=== PATIENT | male | born 1960 | race Caucasian/White ===

== ENCOUNTER 2021-10-15 14:53 | Emergency (ER) | payer MEDICAID ==
[~2021-10-15] VITALS: Ht 172.7 cm; Wt 160.0 kg
[~2021-10-15 14:53] MED LIST: FLUO20CA19 PO; LISI-275 PO
[2021-10-15] MEDS ORDERED: SODIUM CHLORIDE 0.9% 1,000 ML IV ONE (15:15)
[2021-10-15 16:19] VITALS: BP 149/97
[2021-10-16] MEDS ORDERED: ATEN-60 PO (15:21)
== END 2021-10-15 18:04 | disposition left against medical advice (07) ==
LOC: ER 14:53 → EDBD 14:53 → ER 18:04
DX: F10.129 Alcohol abuse with intoxication, unspecified (principal); I10 Essential (primary) hypertension; J44.9 Chronic obstructive pulmonary disease, unspecified; F17.210 Nicotine dependence, cigarettes, uncomplicated; Z90.49 Acquired absence of other specified parts of digestive tract; Z79.899 Other long term (current) drug therapy; Z88.5 Allergy status to narcotic agent; Z88.8 Allergy status to other drugs, medicaments and biological substances; Y90.9 Presence of alcohol in blood, level not specified
CPT/HCPCS: 93005

== ENCOUNTER 2021-10-15 19:38 | Inpatient (IN) | payer MEDICAID ==
[~2021-10-15] VITALS: Ht 175.3 cm; Wt 68.2 kg
[2021-10-15 21:03] LABS: Partial Thromboplastin Time 26.4 sec (24.6-33.4)
[2021-10-15 21:57] LABS: Basophils # (auto) 0 10 ^3/uL (0-0.2); Basophils % (auto) 0.6 % (0.0-2.0); Eosinophils # (auto) 0 10 ^3/uL (0-0.8); Eosinophils % (auto) 0.2 % (0.0-7.0); Hematocrit 45.2 % (41.0-53.0); Mean Corpuscular Hemoglobin 32.3 pg (28.0-32.0); Mean Corpuscular Hgb Conc. 33.3 g/dL (32.0-36.0); Mean Corpuscular Volume 97.1 fL (80.0-100.0); Monocytes # (auto) 0.7 10 ^3/uL (0-1.3); Monocytes % (auto) 7.8 % (0.0-12.0); Neutrophils # (auto) 4.8 10 ^3/uL (1.6-8.6); Neutrophils % (auto) 56.4 % (37.0-80.0); Red Blood Cells 4.66 10^6/uL (4.5-5.90); Red Cell Distribution Width 15.2 % (11.8-14.3); White Blood Cell 8.5 10^3/uL (4.4-10.8)
[2021-10-15 22:18] LABS: Albumin 4.1 g/dL (3.4-5.0); BUN/Creatinine Ratio 15.8; Calcium 8.3 mg/dL (8.5-10.1); Magnesium 2.2 mg/dL (1.6-2.6); Potassium 4.1 mmol/L (3.5-5.1)
[2021-10-15 22:21] LABS: Bilirubin, Total 0.4 mg/dL (0.2-1.0); Total Protein 7.4 g/dL (6.4-8.2)
[2021-10-16] MEDS ORDERED: NITROGLYCERIN 0.4 MG SL TAB SL PRN (04:30)
[2021-10-16] MEDS ORDERED: ONDANSETRON HCL 4 MG/2 ML VIAL IV PRN (04:30)
[2021-10-16] MEDS ORDERED: ACETAMINOPHEN 325 MG TAB PO PRN (04:30)
[2021-10-16] MEDS ORDERED: TEMAZEPAM 15 MG CAP PO PRN (04:30)
[2021-10-16] MEDS ORDERED: ADENOSINE 61 MG in GIVE UN-DILUTED 0 ML IV STA (08:30)
[2021-10-16] MEDS: PANTOPRAZOLE 40 MG TAB PO SCH (10:00)
[2021-10-16 10:44] VITALS: BP 151/93
[2021-10-16 11:10] LABS: Cholesterol 221 mg/dL (< 200)
[2021-10-16 11:12] LABS: HDL Cholesterol 48 mg/dL (40-59); LDL Cholesterol 137 mg/dL (< 100); Triglycerides 350 mg/dL (< 150)
[2021-10-16] MEDS: LISINOPRIL 5 MG TAB PO SCH (12:40)
[2021-10-16] MEDS: ASPirin 81 mg TAB PO SCH (12:40)
[2021-10-16] MEDS: ENOXAPARIN SOD 40 MG/0.4 ML SYRINGE SC SCH (12:42)
[2021-10-16] MEDS: NICOTINE 21MG/24 HR TOPICAL PATCH TD SCH (12:50)
[2021-10-16] MEDS ORDERED: ATEN-60 PO (15:21)
[2021-10-16 17:00] VITALS: BP 142/84
[2021-10-16] MEDS: MORPHINE SULFATE INJ 2 MG/ml SYRG IV PRN ×2 (17:00→19:59)
[2021-10-16 22:00] VITALS: BP 145/87
[2021-10-16] MEDS ORDERED: Niacin 500mg TAB ER PO SCH (22:00)
[2021-10-17 04:59] VITALS: BP 134/85
[2021-10-17 05:50] LABS: Basophils # (auto) 0 10 ^3/uL (0-0.2); Basophils % (auto) 0.6 % (0.0-2.0); Eosinophils # (auto) 0.1 10 ^3/uL (0-0.8); Eosinophils % (auto) 2.8 % (0.0-7.0); Hematocrit 41.2 % (41.0-53.0); Hemoglobin 13.8 g/dL (13.5-17.5); Lymphocytes # (auto) 1.9 10 ^3/uL (0.4-5.4); Lymphocytes % (auto) 35.2 % (10.0-50.0); Mean Corpuscular Hemoglobin 32.5 pg (28.0-32.0); Mean Corpuscular Hgb Conc. 33.5 g/dL (32.0-36.0); Mean Corpuscular Volume 97.2 fL (80.0-100.0); Monocytes # (auto) 0.6 10 ^3/uL (0-1.3); Monocytes % (auto) 10.8 % (0.0-12.0); Neutrophils # (auto) 2.7 10 ^3/uL (1.6-8.6); Neutrophils % (auto) 50.6 % (37.0-80.0); Red Blood Cells 4.24 10^6/uL (4.5-5.90); Red Cell Distribution Width 14.8 % (11.8-14.3); White Blood Cell 5.3 10^3/uL (4.4-10.8)
[2021-10-17 05:58] LABS: Albumin 3.5 g/dL (3.4-5.0); BUN/Creatinine Ratio 14.3; Calcium 8.5 mg/dL (8.5-10.1); Potassium 4.1 mmol/L (3.5-5.1)
[2021-10-17 06:01] LABS: Bilirubin, Total 1.1 mg/dL (0.2-1.0); Total Protein 6.3 g/dL (6.4-8.2)
[2021-10-17 08:20] VITALS: BP 107/49
[2021-10-17] MEDS: ASPirin 81 mg TAB PO SCH (09:48)
[2021-10-17] MEDS: PANTOPRAZOLE 40 MG TAB PO SCH (09:48)
[2021-10-17] MEDS: NICOTINE 21MG/24 HR TOPICAL PATCH TD SCH (09:49)
[2021-10-17] MEDS: ENOXAPARIN SOD 40 MG/0.4 ML SYRINGE SC SCH (09:50)
[2021-10-17] MEDS: LISINOPRIL 5 MG TAB PO SCH (09:50)
[2021-10-17 12:00] VITALS: BP 139/88
[2021-10-17] MEDS ORDERED: Niacin 500mg TAB ER PO SCH (22:00)
== END 2021-10-17 17:30 | disposition home or self-care (01) | DRG 203 ==
LOC: ER 19:38 → EDUNIT# 19:38 → EDBD 19:38 → TELE 10-16 04:19 → TELE-EAST 10-16 14:31
PROVIDERS: ADMIT Nurse Practitioner; ATTEND Internal Medicine
DX: R07.89 Other chest pain (principal); E78.5 Hyperlipidemia, unspecified; I10 Essential (primary) hypertension; J44.9 Chronic obstructive pulmonary disease, unspecified; F10.10 Alcohol abuse, uncomplicated; F41.9 Anxiety disorder, unspecified; Z20.822 Contact with and (suspected) exposure to COVID-19; Z88.5 Allergy status to narcotic agent; Z88.8 Allergy status to other drugs, medicaments and biological substances; Z82.0 Family history of epilepsy and other diseases of the nervous system; Z82.49 Family history of ischemic heart disease and other diseases of the circulatory system; Z72.0 Tobacco use
CPT/HCPCS: 36415; 71045; 78452; 80053; 80061; 83036; 83735; 83880; 84443; 84484; 85025; 85379; 85610; 85730; 93005; 93017; 93306; 96365; 96372; 96375; G0378; J0153; J2405

== ENCOUNTER → 2023-08-02 | Outpatient (CLI) | payer MEDICAID ==
[~2023-08-02] VITALS: Ht 167.6 cm; Wt 63.5 kg
[~2023-08-02] MED LIST changes: +ATE50T PO; +ATEN-60 PO
[2023-08-02 12:05] LABS: Basophils # (auto) 0 10 ^3/uL (0-0.2); Eosinophils # (auto) 0.1 10 ^3/uL (0-0.8); Eosinophils % (auto) 1.3 % (0.0-7.0); Hemoglobin 14.5 g/dL (13.5-17.5); Lymphocytes # (auto) 1.5 10 ^3/uL (0.4-5.4); Monocytes # (auto) 0.8 10 ^3/uL (0-1.3); Neutrophils # (auto) 3.1 10 ^3/uL (1.6-8.6); White Blood Cell 5.5 10^3/uL (4.4-10.8)
[2023-08-02 12:07] LABS: Basophils % (auto) 0.9 % (0.0-2.0); Hematocrit 43.5 % (41.0-53.0); Mean Corpuscular Hemoglobin 34.5 pg (28.0-32.0); Mean Corpuscular Hgb Conc. 33.3 g/dL (32.0-36.0); Mean Corpuscular Volume 103.4 fL (80.0-100.0); Monocytes % (auto) 14.1 % (0.0-12.0); Neutrophils % (auto) 55.7 % (37.0-80.0); Red Blood Cells 4.21 10^6/uL (4.5-5.90); Red Cell Distribution Width 15.2 % (11.8-14.3)
[2023-08-02 12:21] LABS: INR 1.08 (0.9-1.15); Prothrombin Time 11.4 sec (9.3-11.8)
[2023-08-02 12:35] LABS: Alanine Aminotransferase 64 U/L (7-40); Albumin 4.6 g/dL (3.2-4.8); Alkaline Phosphatase 103 U/L (46-116); Anion Gap 4 (5-15); Aspartate Aminotransferase 64 U/L (13-40); BUN/Creatinine Ratio 12.1 (10.0-20.0); Bilirubin, Total 0.9 mg/dL (0.2-1.0); Blood Urea Nitrogen 13 mg/dL (9-23); Calcium 10.2 mg/dL (8.5-10.1); Carbon Dioxide 28 mmol/L (20-30); Chloride 107 mmol/L (98-107); Glucose 167 mg/dL (74-106); Potassium 3.9 mmol/L (3.5-5.1); Sodium 139 mmol/L (136-145)
== END | disposition home or self-care (01) ==
LOC: LAB 11:51 → EDSTATUS 08-06 14:57
PROVIDERS: ATTEND Urology
DX: C61 Malignant neoplasm of prostate (principal)
CPT/HCPCS: 36415; 80053; 85025; 85610; 85730; 86850; 86900; 86901

== ENCOUNTER 2025-01-05 01:01 | Emergency (ER) | payer MEDICAID ==
[~2025-01-05] VITALS: Ht 177.8 cm; Wt 88.5 kg
[~2025-01-05 01:01] MED LIST changes: -ATEN-60 PO; -LISI-275 PO
[2025-01-05 01:08] VITALS: BP 141/99; RESP 18; TEMP 97.8; O2SAT 99
--- NOTE | 2025-01-05 01:41 | ECG ---
[facility] Test Date: 2025-01-05 Test Time: 01:38:37 Pat Name: TWIN WORLEY Department: ED Room: Gender: M Driller Operator: : [id number] Requested By: SAMIR ANDERSEN Order Number: [id number] Reading MD: Wenceslao Farfan Measurements Intervals [place] Rate: 97 P: 82 UT: 173 QRS: 55 QRSD: 112 T: 34 QT: 315 QTc: 400 Interpretive Statements Sinus rhythm Borderline intraventricular conduction delay Electronically Signed On 01-12-2025 13:16:03 PST by Wenceslao Farfan Please click the below link to view image of tracing.
[2025-01-05 01:49] LABS: Hematocrit 39.1 % (41.0-53.0); Hemoglobin 13.3 g/dL (13.5-17.5); Mean Corpuscular Hemoglobin 34.1 pg (28.0-32.0); Mean Corpuscular Volume 100.4 fL (80.0-100.0); Nucleated Red Blood Cells % 0.1 %
[2025-01-05 01:50] LABS: Chloride 103 mmol/L (98-107); Potassium 4.4 mmol/L (3.5-5.1); Sodium 140 mmol/L (136-145)
[2025-01-05 01:51] LABS: Anion Gap 14 (5-15); Calcium 9.4 mg/dL (8.7-10.4); Carbon Dioxide 23 mmol/L (20-31)
[2025-01-05 01:56] LABS: BUN/Creatinine Ratio 12.8 (10.0-20.0); Blood Urea Nitrogen 11 mg/dL (9-23); Glucose 80 mg/dL (74-106)
[2025-01-05] MEDS: LORazepam 0.5 MG TAB PO ONE (02:20)
[2025-01-05] MEDS ORDERED: CHL25C PO (02:30)
[2025-01-05 02:33] VITALS: PULSE 97
--- NOTE | 2025-01-05 02:33 | ED.PDOC ---
Psychiatric HPI Comments 64 YEAR OLD MALE PRESENTS TO ER WITH COMPLAINTS OF ANXIETY X 2 HOURS. PATIENT PRESENTS VIA EMS WITH PMH OF ETOH ABUSE REPORTING THAT HE STARTED FEELING "VERY ANXIOUS" 2 HOURS PRIOR TO ARRIVAL TO ER THAT HE STATES STARTED 2 HOURS AFTER HE FINISHED "2 BOTTLES OF WINE". PATIENT DENIES ANY PAIN AND PRESENTS TO ER ALERT AND ORIENTED X4, IN NO DISTRESS. DENIES HEADACHE, SHORTNESS OF BREATH, CHEST PAIN, PALPITATIONS, SEIZURE, HALLUCINATION, TREMOR, CONFUSION OR ANY FURTHER SYMPTOMS/COMPLAINTS Chief Complaint: Anxiety Time Seen by MD: 01:15 Primary Care Provider: KHURRAM PAZ Reviewed Notes: Nurses Notes, Medications, Allergies Information Source: Patient Mode of Arrival: EMS Past Medical History PAST MEDICAL HISTORY: Cancer (prostate- in remission), COPD, HTN Surgical History: Appendectomy Surgical History (Other): Prostatectomy Family History Family History: Unknown Social History Smoker: Cigarettes, Less Than 1 Pack/Day Alcohol: Heavy Drugs: Denies Drug Use Lives In: Home Constitutional: reports: others ( STATED IN HPI) EENTM: denies: blurred vision, double vision, ear bleeding, ear discharge, ear drainage, ear pain, ear ringing, eye pain, eye redness, hearing loss, mouth pain, mouth swelling, nasal discharge, nose bleeding, nose congestion, nose pain, photophobia, tearing, throat pain, throat swelling, voice changes, others Respiratory: denies: cough, hemoptysis, orthopnea, SOB at rest, shortness of breath, SOB with excertion, stridor, wheezing, others Cardiovascular: denies: chest pain, dizzy spells, diaphoresis, Dyspnea on exertion, edema, irregular heart beat, left arm pain, lightheadedness, palpitations, PND, syncope, others Gastrointestinal: denies: abdomen distended, abdominal pain, blood streaked bowels, constipated, diarrhea, dysphagia, difficulty swallowing, hematemesis, melena, nausea, poor appetite, poor fluid intake, rectal bleeding, rectal pain, vomiting, others Genitourinary: denies: burning, dysuria, flank pain, frequency, hematuria, incontinence, penile discharge, penile sore, pain, testicle pain, testicle swelling, urgency, others Neurological: denies: dizziness, fainting, headache, left sided numbness, left sided weakness, numbness, paresthesia, pre-existing deficit, right sided numbn ess, right sided weakness, seizure, speech problems, tingling, tremors, weakness, others Musculoskeletal: denies: back pain, gout, joint pain, joint swelling, muscle pain, muscle stiffness, neck pain, others Integumetry: denies: bruises, change in color, change in hair/nails, dryness, laceration, lesions, lumps, rash, wounds, others Allergic/Immunocompromised: denies: Difficulty Healing, Frequent Infections, Hives, Itching, others Hematologic/Lymphatic: denies: anemia, blood clots, easy bleeding, easy bruising, swollen glands, others Endocrine: denies: excessive hunger, excessive sweating, excessive thirst, excessive urination, flushing, intolerance to cold, intolerance to heat, unexplained weight gain, unexplained weight loss, others Psychiatric: reports: others ( STATED IN HPI) Physical Exam General Appearance: No Apparent Distress HEENT: Normal ENT Inspection, PERRL/EOMI, Pharynx Normal, TMs Normal Neck: Full Range of Motion, Non-Tender, Normal Respiratory: Chest Non-Tender, Lungs Clear, No Accessory Muscle Use, No Respiratory Distress, Normal Breath Sounds Cardiovascular: No Murmur, No Gallop, Regular Rate/Rhythm Breast Exam: Deferred Gastrointestinal: NOT DONE Genitalia: Deferred Pelvic: Deferred Rectal: Deferred Extremities: Normal capillary refill, Normal range of motion Neurologic: Alert, sensitometrist II-XII nml as Tested, No Motor Deficits, Normal Affect, Normal Mood, No Sensory Deficits Cerebellar Function: Normal Reflexes: Normal Skin: Dry, Normal Color, Warm Lymphatic: No Adenopathy EKG EKG : Pulse Rate (adult): 97 [place]: Normal Cardiac Rhythm: NSR (SR) Block: None Hypertrophy: None Was a procedure done? Was a procedure done?: No Sedation Sedation?: No Psych Differential Dx Intoxication Differential Dx: Alcohol Withdraw Syndrome, Delerium Tremens, Hallucinations, Seizures, CVA, Electrolyte Imbalance X-Ray, Labs, Meds, VS Vital Signs Date Time Temp Pulse Resp B/P (MAP) Pulse Ox O2 Delivery O2 Flow Rate FiO2 01/05/25 02:33 97 01/05/25 01:38 97 01/05/25 01:08 97.8 100 18 141/99 99 97.8 Lab Test 01/05/25 01:23 Range/Units White Blood Count 5.1 4.4-10.8 10^3/uL Red Blood Count 3.90 L 4.5-5.90 10^6/uL Hemoglobin 13.3 L 13.5-17.5 g/dL Hematocrit 39.1 L 41.0-53.0 % Mean Corpuscular Volume 100.4 H 80.0-100.0 fL Mean Corpuscular Hemoglobin 34.1 H 28.0-32.0 pg Mean Corpuscular Hemoglobin Concent 34.0 32.0-36.0 g/dL Red Cell Distribution Width 14.1 11.8-14.3 % Platelet Count 147 140-450 10^3/uL Mean Platelet Volume 8.5 6.9-10.8 fL Neutrophils (%) (Auto) 46.9 37.0-80.0 % Lymphocytes (%) (Auto) 45.3 10.0-50.0 % Monocytes (%) (Auto) 5.7 0.0-12.0 % Eosinophils (%) (Auto) 1.1 0.0-7.0 % Basophils (%) (Auto) 1.0 0.0-2.0 % Neutrophils # (Auto) 2.4 1.6-8.6 10 ^3/uL Lymphocytes # (Auto) 2.3 0.4-5.4 10 ^3/uL Monocytes # (Auto) 0.3 0-1.3 10 ^3/uL Eosinophils # (Auto) 0.1 0-0.8 10 ^3/uL Basophils # (Auto) 0.1 0-0.2 10 ^3/uL Nucleated Red Blood Cells 0.1 % Sodium Level 140 136-145 mmol/L Potassium Level 4.4 3.5-5.1 mmol/L Chloride Level 103 98-107 mmol/L Carbon Dioxide Level 23 20-31 mmol/L Anion Gap 14 5-15 Blood Urea Nitrogen 11 9-23 mg/dL Creatinine 0.86 0.700-1.30 mg/dL Glomerular Filtration Rate Calc 97 >90 mL/min BUN/Creatinine Ratio 12.8 10.0-20.0 Serum Glucose 80 74-106 mg/dL Calcium Level 9.4 8.7-10.4 mg/dL Troponin I High Sensitivity < 3 L </=54 ng/L Plasma/Serum Blood Alcohol 297.9 H <10 mg/dL Current Medications Medications (Trade) Dose Ordered Sig/Leroy Route Start Time Stop Time Status Last Admin Lorazepam (Ativan Tablet) 1 mg ONCE ONCE PO 01/05/25 02:15 01/05/25 02:16 DC 01/05/25 02:20 Sodium Chloride 1,000 ml @ 1,000 mls/hr Q1H ONCE IV 01/05/25 02:15 01/05/25 03:14 01/05/25 02:35 CBC reviewed without any significant abnormalities BMP reviewed without any significant abnormalities Troponin reviewed-normal Blood alcohol reviewed- 297.9 Chest x-ray reviewed Hep-Lock IV ordered NS 1 L IV ordered Ativan 1 mg p.o. ordered Advised to drink plenty of fluids No tremor, diaphoresis, hallucinations or confusion noted. No evidence of acute withdrawal or delirium noted Patient had improvement in symptoms, able to tolerate p.o. intake and ambulate without difficulty Alcohol cessation resources provided ETOH cessation discussed and advised Advised to follow up with PCP in 1-2 days Patient alert and oriented x4 prior to discharge. Patient verbalized understanding and agreeable with current plan of care Advised to return to ER immediately if symptoms worsen Time of 1ST Reevaluation: 02:15 Reevaluation 1ST: N/A Time of 2ND Reevaluation: 03:10 Reevaluation 2ND: Improved Patient Education/Counseling: Diagnosis, Treatment, Prognosis, Need For Follow Up Family Education/Counseling: No Family Present Departure 1 Departure Time of Disposition: 03:11 Impression: Primary Impression: Anxiety Additional Impression: ETOH abuse Disposition: 01 HOME / SELF CARE / HOMELESS Condition: Stable e-Prescriptions Chlordiazepoxide Hcl (Librium) 25 Mg Cp 25 MG PO Q6HPRN, #12 CAP 0 Refills Prov: SAMIR ANDERSEN 01/05/25 Discharged With: Friend Critical Care Note Critical Care Time?: No Stability Stability form required: No Heart Score Heart Score: Heart Score Response (Comments) Value History N/A 0 EKG N/A 0 Age N/A 0 Risk Factors N/A 0 Troponin N/A 0 Total 0 SAMIR ANDERSEN Jan 05, 2025 02:33
[2025-01-05] MEDS: SODIUM CHLORIDE 0.9% 1,000 ML IV ONE (02:35)
== END 2025-01-05 03:09 | disposition home or self-care (01) ==
LOC: EDBD 01:01 → ER 01:01
DX: F41.9 Anxiety disorder, unspecified (principal); F10.10 Alcohol abuse, uncomplicated; F17.210 Nicotine dependence, cigarettes, uncomplicated; I10 Essential (primary) hypertension; J44.9 Chronic obstructive pulmonary disease, unspecified; Z90.49 Acquired absence of other specified parts of digestive tract; Z90.79 Acquired absence of other genital organ(s)
CPT/HCPCS: 36415; 80048; 80320; 84484; 85025; 93005; 96360; 99284; J7030

== ENCOUNTER 2025-02-12 01:08 | Emergency (ER) | payer MEDICAID ==
[~2025-02-12] VITALS: Ht 170.2 cm; Wt 68.0 kg
[~2025-02-12 01:08] MED LIST changes: +CHL25C PO
[2025-02-12 02:00] VITALS: PULSE 70; RESP 13; TEMP 98.4; O2SAT 95
--- NOTE | 2025-02-12 02:16 | ED.PDOC ---
History of Present Illness HPI Comments 64-year-old male who came to the ER for shortness of breath. Patient has history of hypertension, prostate cancer s/p prostatectomy last year. Known alcohol drinker also. For the past 6 months he has been having shortness of breath with exertion, chest pains, pressure, that occur at night, worse when laying down, and imbalance, with bilateral thigh pains. Patient usually ambulates with a walker. Chief Complaint: Shortness of Breath Time Seen by MD: 02:15 Primary Care Provider: KHURRAM PAZ Reviewed Notes: Nurses Notes Allergies: Coded Allergies: Codeine (Verified Allergy, Unknown, 10/15/21) Simvastatin (Unverified Allergy, Unknown, 11/29/16) Home Meds Active Scripts Chlordiazepoxide Hcl (Librium) 25 Mg Cp, 25 MG PO Q6HPRN, #12 CAP 0 Refills Prov:SAMIR ANDERSEN 01/05/25 Reported Medications Atenolol (TENORMIN TABLET) 50 Mg Tb, 50 MG PO BID, TAB 08/02/23 Fluoxetine Hcl (Pmdd) (Fluoxetine) 20 Mg Cap, 30 MG PO DAILY, CAP 11/29/16 Information Source: Patient Mode of Arrival: EMS Past Medical History PAST MEDICAL HISTORY: Cancer, COPD, HTN Surgical History: Appendectomy Surgical History (Other): Status post prostatectomy Family History Family History: Unknown Social History Smoker: Cigarettes, Less Than 1 Pack/Day Alcohol: Heavy Drugs: Denies Drug Use Lives In: Home Constitutional: denies: chills, diaphoresis, fatigue, fever, malaise, sweats, weakness, others EENTM: denies: blurred vision, double vision, ear bleeding, ear discharge, ear drainage, ear pain, ear ringing, eye pain, eye redness, hearing loss, mouth pain, mouth swelling, nasal discharge, nose bleeding, nose congestion, nose pain, photophobia, tearing, throat pain, throat swelling, voice changes, others Respiratory: reports: shortness of breath, SOB with excertion; denies: cough, hemoptysis, orthopnea, SOB at rest, stridor, wheezing, others Cardiovascular: reports: chest pain, dizzy spells; denies: diaphoresis, Dyspnea on exertion, edema, irregular heart beat, left arm pain, lightheadedness, palpitations, PND, syncope, others Gastrointestinal: denies: abdomen distended, abdominal pain, blood streaked bowels, constipated, diarrhea, dysphagia, difficulty swallowing, hematemesis, melena, nausea, poor appetite, poor fluid intake, rectal bleeding, rectal pain, vomiting, others Genitourinary: denies: burning, dysuria, flank pain, frequency, hematuria, incontinence, penile discharge, penile sore, pain, testicle pain, testicle swelling, urgency, others Neurological: reports: others (Lateral leg pain); denies: dizziness, fainting, headache, left sided numbness, left sided weakness, numbness, paresthesia, pre- existing deficit, right sided numbness, right sided weakness, seizure, speech problems, tingling, tremors, weakness Musculoskeletal: denies: back pain, gout, joint pain, joint swelling, muscle pain, muscle stiffness, neck pain, others Integumetry: denies: bruises, change in color, change in hair/nails, dryness, laceration, lesions, lumps, rash, wounds, others Allergic/Immunocompromised: denies: Difficulty Healing, Frequent Infections, Hives, Itching, others Hematologic/Lymphatic: denies: anemia, blood clots, easy bleeding, easy bruising, swollen glands, others Endocrine: denies: excessive hunger, excessive sweating, excessive thirst, excessive urination, flushing, intolerance to cold, intolerance to heat, unexplained weight gain, unexplained weight loss, others Psychiatric: denies: anxiety, bipolar disorder, depression, hopeless, panic disorder, schizophrenia, sleepless, suicidal, others Physical Exam General Appearance: No Apparent Distress, Normal HEENT: Normal ENT Inspection, Pharynx Normal, TMs Normal Neck: Full Range of Motion, Non-Tender, Normal, Normal Inspection Respiratory: Chest Non-Tender, Lungs Clear, No Accessory Muscle Use, No Respiratory Distress, Normal Breath Sounds Cardiovascular: No Edema, No JVD, No Murmur, No Gallop, Normal Peripheral Pulses, Regular Rate/Rhythm Breast Exam: Deferred Gastrointestinal: No Organomegaly, Non Tender, No Pulsatile Mass, Normal Bowel Sounds, Soft Genitalia: Deferred Pelvic: Deferred Rectal: Deferred Extremities: No calf tenderness, Normal capillary refill, Normal inspection, Normal range of motion, Non-tender, No pedal edema Musculoskeletal : Apperance: Normal Neurologic: Alert, complementary health therapists II-XII nml as Tested, No Motor Deficits, Normal Affect, Normal Mood, No Sensory Deficits Cerebellar Function: Normal Reflexes: Normal Skin: Dry, Normal Color, Warm Lymphatic: No Adenopathy Was a procedure done? Was a procedure done?: No Differential Dx Considerations may include: Anemia, electrolyte imbalance, dehydration, prostate cancer X-Ray, Labs, Meds, VS Vital Signs Date Time Temp Pulse Resp B/P (MAP) Pulse Ox O2 Delivery O2 Flow Rate FiO2 02/12/25 02:00 70 13 95 Room Air* 0 21 02/12/25 02:00 98.4 70 14 100/74 (83) 94 98.4 02/12/25 01:08 97.9 72 18 101/56 98 97.9 Lab Test 02/12/25 03:20 02/12/25 02:25 Range/Units Troponin I High Sensitivity 4 3 L </=54 ng/L White Blood Count 6.9 4.4-10.8 10^3/uL Red Blood Count 3.43 L 4.5-5.90 10^6/uL Hemoglobin 11.9 L 13.5-17.5 g/dL Hematocrit 35.8 L 41.0-53.0 % Mean Corpuscular Volume 104.3 H 80.0-100.0 fL Mean Corpuscular Hemoglobin 34.8 H 28.0-32.0 pg Mean Corpuscular Hemoglobin Concent 33.4 32.0-36.0 g/dL Red Cell Distribution Width 15.5 H 11.8-14.3 % Platelet Count 197 140-450 10^3/uL Mean Platelet Volume 7.7 6.9-10.8 fL Neutrophils (%) (Auto) 43.4 37.0-80.0 % Lymphocytes (%) (Auto) 42.0 10.0-50.0 % Monocytes (%) (Auto) 9.3 0.0-12.0 % Eosinophils (%) (Auto) 4.4 0.0-7.0 % Basophils (%) (Auto) 0.9 0.0-2.0 % Neutrophils # (Auto) 3.0 1.6-8.6 10 ^3/uL Lymphocytes # (Auto) 2.9 0.4-5.4 10 ^3/uL Monocytes # (Auto) 0.6 0-1.3 10 ^3/uL Eosinophils # (Auto) 0.3 0-0.8 10 ^3/uL Basophils # (Auto) 0.1 0-0.2 10 ^3/uL Nucleated Red Blood Cells 0.1 % Sodium Level 143 136-145 mmol/L Potassium Level 4.2 3.5-5.1 mmol/L Chloride Level 111 H 98-107 mmol/L Carbon Dioxide Level 22 20-31 mmol/L Anion Gap 10 5-15 Blood Urea Nitrogen 10 9-23 mg/dL Creatinine 1.17 0.700-1.30 mg/dL Glomerular Filtration Rate Calc 70 >90 mL/min BUN/Creatinine Ratio 8.5 L 10.0-20.0 Serum Glucose 67 L 74-106 mg/dL Calcium Level 8.5 L 8.7-10.4 mg/dL Magnesium Level 1.6 1.6-2.6 mg/dL Total Bilirubin 0.3 0.2-1.0 mg/dL Aspartate Amino Transferase (AST) 72 H 13-40 U/L Alanine Aminotransferase (ALT) 29 7-40 U/L Alkaline Phosphatase 104 46-116 U/L B-Type Natriuretic Peptide 47.56 0-100 pg/mL Total Protein 5.8 5.7-8.2 g/dL Albumin 3.6 3.2-4.8 g/dL Plasma/Serum Blood Alcohol 291.2 H <10 mg/dL Current Medications Medications (Trade) Dose Ordered Sig/Leroy Route Start Time Stop Time Status Last Admin Sodium Chloride 1,000 ml @ 1,000 mls/hr Q1H ONCE IV 02/12/25 02:00 02/12/25 02:59 DC 02/12/25 02:29 Aspirin 325 mg ONCE ONCE PO 02/12/25 03:30 02/12/25 03:31 DC 02/12/25 03:32 Acetaminophen (Tylenol Tablet) 650 mg ONCE ONCE PO 02/12/25 03:30 02/12/25 03:31 DC 02/12/25 03:32 Time of 1ST Reevaluation: 02:09 Reevaluation 1ST: Unchanged Patient Education/Counseling: Diagnosis, Treatment Family Education/Counseling: No Family Present SEPSIS Sepsis Screen Date sepsis recognized/suspect: Feb 12, 2025 Time Sepsis recognized/suspect: 0108 Recent Procedure: No On Antibiotic Therapy: No Respiratory Rate >20: No Heart Rate >90: No Temp<36 C (96.8 F) or >38.3 C: No SBP <90 or MAP <65 mmHG: No New Acute Mental Status Change: No Is the patient on CPAP, BIPAP,: No Physician Orders Chest Portable (02/12/25 01:58) Urinalysis (02/12/25 01:58) Troponin-I Hs (02/12/25 04:58) Electrocardigram (02/12/25 01:58) Head Without Contrast (02/12/25 02:03) Vital Signs Date Time Temp Pulse Resp B/P (MAP) Pulse Ox O2 Delivery O2 Flow Rate FiO2 02/12/25 02:00 70 13 95 Room Air* 0 21 02/12/25 02:00 98.4 70 14 100/74 (83) 94 98.4 02/12/25 01:08 97.9 72 18 101/56 98 97.9 Laboratory Tests Test 02/12/25 02:25 White Blood Count 6.9 10^3/uL (4.4-10.8) Medications Medications Dose Ordered Sig/Leroy Route Start Time Stop Time Status Last Admin Dose Admin Acetaminophen 650 mg ONCE ONCE PO 02/12/25 03:30 02/12/25 03:31 DC 02/12/25 03:32 Aspirin 325 mg ONCE ONCE PO 02/12/25 03:30 02/12/25 03:31 DC 02/12/25 03:32 Sodium Chloride 1,000 ml @ 1,000 mls/hr Q1H ONCE IV 02/12/25 02:00 02/12/25 02:59 DC 02/12/25 02:29 Departure 1 Departure Time of Disposition: 04:10 (64-year-old male with numerous symptoms that have been ongoing for several months. Patient reporting recurrent chest pain, typically worsened when he lays down at night. Consider possibly with gastritis, reflux contributing to chest discomfort. Given the patient's comorbidities consider possible ACS. Patient has a heart score of 3. Serial troponins were obtained which came back negative. Started does not really seem consistent with ACS. Patient with no pain chest pain, no critical hypertension, no widened mediastinum on chest x-ray, not concerning for aortic aneurysm, dissection. Patient reporting recurrent shortness of breath, however, has normal work of breathing. No pleuritic chest discomfort, no risk factors for PE, does not seem consistent with pulmonary embolism. Patient with no history of heart failure, no lower extremity edema, normal BNP, chest x-ray with no evidence of increased pulmonary vascular congestion to sugges heart failure exacerbation. Patient with no recent fever, cough, no evidence of focal consolidation on chest x-ray to suggest a bacterial pneumonia. Patient also reporting generalized weakness, typically ambulates with a walker. Given the history of alcohol abuse a CT of the head was performed which is negative for any acute intracranial process. Chest x-ray also with no evidence of cardiomegaly, no findings concerning for pericardial effusion. Patient's alcohol level is elevated, consistent with self report that he drinks regularly. Patient was given 1 L normal saline IV fluid bolus. Was given oral Tylenol, aspirin. Patient is stable for discharge given reassuring workup today with no acute process identified on workup. Will be discharged home, we will assist him in transportation back home given that he is intoxicated.) Impression: Primary Impression: Chest pain, rule out acute myocardial infarction Additional Impressions: Shortness of breath Generalized weakness Bilateral leg pain Alcohol abuse Alcohol intoxication Disposition: 01 HOME / SELF CARE / HOMELESS Condition: Stable Discharged With: Self Critical Care Note Critical Care Time?: No Stability Stability form required: No Heart Score Heart Score: Heart Score Response (Comments) Value History Slightly Suspicious 0 EKG Normal 0 Age 45-64 1 Risk Factors >3 or Hx ASHD 2 Troponin Normal limit 0 Total 3 I personally scribed for GILMER WHARTON MD ([email or web address]) on 02/12/25 at 02:16. Electronically submitted by Elroy Valera ([facility]). GILMER WHARTON MD Feb 12, 2025 02:16
[2025-02-12] MEDS: SODIUM CHLORIDE 0.9% 1,000 ML IV ONE (02:29)
[2025-02-12 02:40] LABS: Hematocrit 35.8 % (41.0-53.0); Nucleated Red Blood Cells % 0.1 %
[2025-02-12 02:42] LABS: Hemoglobin 11.9 g/dL (13.5-17.5); Mean Corpuscular Hemoglobin 34.8 pg (28.0-32.0); Mean Corpuscular Volume 104.3 fL (80.0-100.0)
[2025-02-12 02:57] LABS: Alanine Aminotransferase 29 U/L (7-40); Albumin 3.6 g/dL (3.2-4.8); Alkaline Phosphatase 104 U/L (46-116); Anion Gap 10 (5-15); BUN/Creatinine Ratio 8.5 (10.0-20.0); Bilirubin, Total 0.3 mg/dL (0.2-1.0); Blood Urea Nitrogen 10 mg/dL (9-23); Carbon Dioxide 22 mmol/L (20-31); Magnesium 1.6 mg/dL (1.6-2.6); Potassium 4.2 mmol/L (3.5-5.1); Sodium 143 mmol/L (136-145); Total Protein 5.8 g/dL (5.7-8.2)
[2025-02-12 02:58] LABS: Calcium 8.5 mg/dL (8.7-10.4); Chloride 111 mmol/L (98-107); Glucose 67 mg/dL (74-106)
--- NOTE | 2025-02-12 03:06 | DVH ---
CHEST RADIOGRAPH Indication: SOB Technique: Single frontal view of the chest was obtained COMPARISON: XY CHEST TWO VIEWS ROUTINE on DOS: 08/02/23, CHEST PORTABLE on DOS: 10/15/21 FINDINGS: Lines and Tubes: None Lungs: Clear Pleura: No effusion. No pneumothorax. Cardiomediastinal contours: Unremarkable Bones: Unremarkable IMPRESSION: 1. No acute disease.
--- NOTE | 2025-02-12 03:26 | DVH ---
EXAM: CT HEAD WITHOUT CONTRAST INDICATION: weakness TECHNIQUE: CT of the head without intravenous contrast. Radiation Dose : 1. Head: CT Dose: CTDI volume is 57.99 mGy. Dose-length product is 1142.76 mGy*cm The dose indicators for CT are the volume Computed Tomography (CT) Dose Index (CTDIvol) and the Dose Length Product (DLP), and are measured in units of mGy and mGy-cm, respectively. These indicators are not patient dose, but values generated from the CT scanner acquisition factors. The report includes radiation exposure data for exposures received during this examination. COMPARISON: CT BRAIN on DOS: 07/08/23 FINDINGS: There is no evidence of acute intracranial hemorrhage, extra-axial collection, mass effect, midline shift, herniation or hydrocephalus. Increased prominence of the ventricles, sulci and cisterns consistent with sequelae Of atrophic cortical volume loss. The byrne-white differentiation is intact. Moderate diffuse confluent periventricular and subcortical white matter hypoattenuation is nonspecific but may be related to small vessel ischemic disease. The visualized paranasal sinuses and mastoid air cells are clear. The surrounding soft tissues and osseous structures are unremarkable. IMPRESSION: 1. No acute intracranial abnormality. 2. Chronic sequelae of microangiopathy and atrophic cortical volume loss. Radiation optimization: All CT scans at this facility use at least one of these dose optimization techniques: automated exposure control mA and/or kV adjustment per patient size (includes targeted exams where dose is matched to clinical indication) or iterative reconstruction.
[2025-02-12] MEDS: ACETAMINOPHEN 325 MG TAB PO ONE (03:32)
[2025-02-12 06:00] VITALS: BP 85/55; PULSE 68; RESP 12; O2SAT 92
== END 2025-02-12 06:34 | disposition home or self-care (01) ==
LOC: ER 01:08 → EDUNIT# 01:08 → EDBD 01:08 → ER 06:34
DX: R07.89 Other chest pain (principal); R06.02 Shortness of breath; R53.1 Weakness; M79.652 Pain in left thigh; M79.651 Pain in right thigh; F10.129 Alcohol abuse with intoxication, unspecified; F17.210 Nicotine dependence, cigarettes, uncomplicated; I10 Essential (primary) hypertension; J44.9 Chronic obstructive pulmonary disease, unspecified; Z79.899 Other long term (current) drug therapy; Z90.79 Acquired absence of other genital organ(s); Z90.49 Acquired absence of other specified parts of digestive tract; Z88.5 Allergy status to narcotic agent; Y90.8 Blood alcohol level of 240 mg/100 ml or more
CPT/HCPCS: 36415; 70450; 71045; 80053; 80320; 83735; 83880; 84484; 85025; 96360; 99285; J7030